=== PATIENT | female | born 1955 | race Caucasian/White ===

== ENCOUNTER 2020-09-09 15:17 | Emergency (ER) | payer OTHER ==
[~2020-09-09 15:17] MED LIST: LOPRESSOR 25 MG25 MG PO
== END 2020-09-09 19:15 | disposition home or self-care (01) ==
LOC: ER1 15:17
DX: S52.501A Unspecified fracture of the lower end of right radius, initial encounter for closed fracture (principal); S52.601A Unspecified fracture of lower end of right ulna, initial encounter for closed fracture; F17.200 Nicotine dependence, unspecified, uncomplicated; Z88.7 Allergy status to serum and vaccine; W01.0XXA Fall on same level from slipping, tripping and stumbling without subsequent striking against object, initial encounter
CPT/HCPCS: 29125; 73110; 99283

== ENCOUNTER → 2021-08-18 | Outpatient (CLI) | payer OTHER | LOC: HEART 5 08:17 | DX: R06.00 Dyspnea, unspecified (principal); I08.1 Rheumatic disorders of both mitral and tricuspid valves | CPT/HCPCS: 93306 ==

== ENCOUNTER → 2021-09-03 | Outpatient (CLI) | payer MEDICARE, OTHER | LOC: EMI 12:58 | DX: G44.89 Other headache syndrome (principal); R41.3 Other amnesia; G43.909 Migraine, unspecified, not intractable, without status migrainosus; G31.9 Degenerative disease of nervous system, unspecified | CPT/HCPCS: 70551 ==